=== PATIENT | male | born 1970 | race African-American/Black ===

== ENCOUNTER 2021-06-27 11:32 | Emergency (ER) | payer SELFPAY | END 2021-06-27 12:10 | disposition home or self-care (01) | LOC: NAV ERS 11:32 | DX: S46.911A Strain of unspecified muscle, fascia and tendon at shoulder and upper arm level, right arm, initial encounter (principal); X58.XXXA Exposure to other specified factors, initial encounter | CPT/HCPCS: 99283 ==

== ENCOUNTER 2021-08-12 02:27 | Emergency (ER) | payer SELFPAY | END 2021-08-12 06:00 | disposition home or self-care (01) | LOC: NAV ERS 02:27 | DX: K02.9 Dental caries, unspecified (principal) | CPT/HCPCS: 99282 ==

== ENCOUNTER 2021-09-20 09:02 | Emergency (ER) | payer OTHER | END 2021-09-20 10:39 | disposition home or self-care (01) | LOC: NAV ERS 09:02 | DX: K05.00 Acute gingivitis, plaque induced (principal); K02.9 Dental caries, unspecified | CPT/HCPCS: 99282 ==

== ENCOUNTER 2021-10-20 08:41 | Emergency (ER) | payer OTHER | END 2021-10-20 09:55 | disposition home or self-care (01) | LOC: NAV ERS 08:41 | DX: K04.4 Acute apical periodontitis of pulpal origin (principal) | CPT/HCPCS: 99282 ==

== ENCOUNTER 2021-11-08 17:24 | Emergency (ER) | payer OTHER ==
[2021-11-08] MEDS ORDERED: Amoxicillin/Potassium Clav 875 MG TAB ONE (17:49)
== END 2021-11-08 18:26 | disposition home or self-care (01) ==
LOC: NAV ERS 17:24
DX: K08.89 Other specified disorders of teeth and supporting structures (principal)
CPT/HCPCS: 99282

== ENCOUNTER 2023-05-31 10:05 | Emergency (ER) | payer OTHER | END 2023-05-31 10:50 | disposition home or self-care (01) | LOC: NAV ERS 10:05 | DX: K04.4 Acute apical periodontitis of pulpal origin (principal) | CPT/HCPCS: 99282 ==

== ENCOUNTER 2023-07-05 09:31 | Emergency (ER) | payer OTHER, SELFPAY | END 2023-07-05 10:18 | disposition home or self-care (01) | LOC: NAV ERS 09:31 | DX: K02.9 Dental caries, unspecified (principal) | CPT/HCPCS: 99282 ==

== ENCOUNTER 2024-02-03 15:36 | Emergency (ER) | payer OTHER ==
[2024-02-03 16:35] LABS: #Lymphocytes 1.2 thou/uL (1.20-3.40); #Monocytes 0.4 thou/uL (0.11-0.59); #Neutrophils 5.4 thou/uL (1.40-6.50); %Basophils 0.3 % (0.0-1.0); %Eosinophils 0.5 % (0.0-10.0); %Lymphocytes 17.7 % (21.0-51.0); %Monocytes 5.2 % (0.0-10.0); %Neutrophils 76.3 % (42.0-75.0); Hematocrit 43.8 % (42.0-52.0); Hemoglobin 13.9 g/dL (14.0-18.0); Mean Corpuscular HGB CONC 31.8 g/dL (32.0-36.0); Mean Corpuscular Hemoglobin 27.8 pg (27.0-31.0); Mean Corpuscular Volume 87.4 fl (78.0-98.0); Mean Platelet Volume 7.9 fL (7.4-10.4); Platelet Count 317 10x3/uL (130-400); RBC Distribution Width 11.4 % (11.5-14.5); Red Blood Cell (RBC) Count 5.01 mill/uL (4.70-6.10)
[2024-02-03] MEDS ORDERED: Nitroglycerin 2% Ointment 1 INCH/1 GM Packet ONE (16:52)
[2024-02-03] MEDS ORDERED: Aspirin Chewable 81 MG TAB ONE (16:52)
[2024-02-03 16:55] LABS: ALT (SGPT) 13 U/L (8-55); AST (SGOT) 15 U/L (5-34); Albumin 4.3 g/dL (3.5-5.0); Alkaline Phosphatase 77 U/L (40-110); Anion Gap 12 mmol/L (10-20); BUN (Urea Nitrogen) 10 mg/dL (8.4-25.7); Bilirubin, Total 1.1 mg/dL (0.2-1.2); Calc. Creatinine Clearance 0 mL/min (70-130); Calcium 9.3 mg/dL (7.8-10.44); Carbon Dioxide 29 mmol/L (22-29); Chloride 99 mmol/L (98-107); Estimated GFR 74; Globulin 3.9 g/dL (2.4-3.5); Glucose 111 mg/dL (70-105); Protein, Total 8.2 g/dL (6.0-8.3); Sodium 136 mmol/L (136-145)
[2024-02-03 16:58] LABS: Troponin I 0.019 ng/mL (< 0.028)
== END 2024-02-03 18:12 | disposition left against medical advice (07) ==
LOC: NAV ERS 15:36
DX: J10.1 Influenza due to other identified influenza virus with other respiratory manifestations (principal)
CPT/HCPCS: 71045; 80053; 84484; 85025; 87428; 93005

== ENCOUNTER 2024-02-19 06:59 | Emergency (ER) | payer OTHER ==
[2024-02-19] MEDS ORDERED: Amlodipine 5 MG TAB ONE (07:25)
[2024-02-19] MEDS ORDERED: Hydrochlorothiazide 25 MG TAB ONE (07:25)
== END 2024-02-19 07:51 | disposition home or self-care (01) ==
LOC: NAV ERS 06:59
DX: I10 Essential (primary) hypertension (principal)
CPT/HCPCS: 93005; 99284

== ENCOUNTER 2024-02-26 09:59 | Emergency (ER) | payer OTHER ==
[2024-02-26 10:29] LABS: #Eosinophils 0.1 thou/uL (0.0-0.7); #Lymphocytes 1.7 thou/uL (1.20-3.40); #Monocytes 0.5 thou/uL (0.11-0.59); #Neutrophils 5.8 thou/uL (1.40-6.50); %Basophils 0.5 % (0.0-1.0); %Eosinophils 0.8 % (0.0-10.0); %Lymphocytes 21.1 % (21.0-51.0); %Neutrophils 71.6 % (42.0-75.0); Hemoglobin 14.8 g/dL (14.0-18.0); Mean Corpuscular HGB CONC 32.2 g/dL (32.0-36.0); Mean Corpuscular Hemoglobin 27.2 pg (27.0-31.0); Mean Corpuscular Volume 84.4 fl (78.0-98.0); Mean Platelet Volume 8.9 fL (7.4-10.4); Platelet Count 366 10x3/uL (130-400); Red Blood Cell (RBC) Count 5.45 mill/uL (4.70-6.10); White Blood Cell (WBC) Count 8.1 10x3/uL (4.8-10.8)
[2024-02-26 10:43] LABS: ALT (SGPT) 17 U/L (8-55); AST (SGOT) 16 U/L (5-34); Albumin 4.3 g/dL (3.5-5.0); Alkaline Phosphatase 81 U/L (40-110); Anion Gap 15 mmol/L (10-20); BUN (Urea Nitrogen) 16 mg/dL (8.4-25.7); Bilirubin, Total 1.5 mg/dL (0.2-1.2); Calc. Creatinine Clearance 0 mL/min (70-130); Calcium 9.6 mg/dL (7.8-10.44); Carbon Dioxide 32 mmol/L (22-29); Chloride 94 mmol/L (98-107); Estimated GFR 65; Globulin 3.8 g/dL (2.4-3.5); Glucose 147 mg/dL (70-105); Protein, Total 8.1 g/dL (6.0-8.3); Sodium 138 mmol/L (136-145)
[2024-02-26 10:45] LABS: Troponin I Less than 0.010 ng/mL (< 0.028)
[2024-02-26] MEDS ORDERED: Potassium Chloride 20 MEQ TAB ONE (11:12)
[2024-02-26] MEDS ORDERED: Aspirin Chewable 81 MG TAB ONE (11:12)
[2024-02-26 13:57] LABS: Troponin I Less than 0.010 ng/mL (< 0.028)
== END 2024-02-26 14:33 | disposition home or self-care (01) ==
LOC: NAV ERS 09:59
DX: R07.89 Other chest pain (principal)
CPT/HCPCS: 71046; 80053; 84484; 85025; 93005; 94760

== ENCOUNTER 2024-03-02 20:30 | Emergency (ER) | payer OTHER | END 2024-03-02 21:36 | disposition home or self-care (01) | LOC: NAV ERS 20:30 | DX: I10 Essential (primary) hypertension (principal) | CPT/HCPCS: 99283 ==

== ENCOUNTER 2024-03-15 21:57 | Emergency (ER) | payer OTHER ==
[2024-03-15] MEDS ORDERED: Acetaminophen 500 MG TAB ONE (23:01)
== END 2024-03-15 23:08 | disposition home or self-care (01) ==
LOC: NAV ERS 21:57
DX: M25.552 Pain in left hip (principal)
CPT/HCPCS: 99283